=== PATIENT | male | born 1980 | race Caucasian/White ===

== ENCOUNTER → 2016-08-09 09:12 | Day surgery (SDC) | payer BC ==
--- NOTE | 2016-07-20 02:20 | HP ---
HISTORY AND PHYSICAL: DATE OF PLANNED ADMISSION AND SURGERY: 07/26/16 HISTORY OF PRESENT ILLNESS: Mr. Kay is a 35-year-old white male who is admitted with a 4-mm calculus in the distal left ureter for cystoscopy, left ureteroscopy, laser lithotripsy, and left ureteral stent placement. Mr. Kay presented 2-1/2 months ago with pelvic and perineal pain. At that time, his workup showed a 1-cm calculus in the distal left ureter associated with moderate hydronephrosis. He underwent a cystoscopy, which showed a significant degree of edema and hyperemia of the bladder neck and of the trigone. There was a concern this represented a bladder tumor and he had multiple biopsies of the bladder lesions, which turned out to be inflammatory. At the same time, he underwent a left ureteroscopy, laser lithotripsy, and placement of left ureteral stent. He did very well with resolution of his symptoms. On his followup renal ultrasound about 5 weeks prior to this admission, there was a 4-mm calculus fragment noted in the distal left ureter. This was asymptomatic and was not associated with hydronephrosis. It was decided to manage it conservatively. He was evaluated one month later with a renal ultrasound and the stone was still in the same position. The patient however started having recurrence of the pelvic and perineal discomfort. Because of the above history and the duration the stone has been in the same position, the patient is admitted for the above procedure. PAST MEDICAL HISTORY AND SYSTEM REVIEW: Otherwise negative. He is in very good health. He is on no chronic medications. He developed a bad rash while he was on Cipro and Flagyl. He has no other allergies known. PHYSICAL EXAMINATION GENERAL: A pleasant, healthy, and fit-looking young man. VITAL SIGNS: Blood pressure 100/60. LUNGS: Clear. HEART: Regular and rhythmic. No murmurs. ABDOMEN: Soft. No masses, no tenderness, and no CVA tenderness. IMPRESSION: Residual 4 to 5-mm calculus in the distal left ureter present for the last 2 months, becoming moderately symptomatic. PLAN: Plan is for cystoscopy, left ureteroscopy, laser lithotripsy, and left ureteral stent insertion. I discussed the above plans with the patient. All his questions were answered. [id number]/[facility] #: [id number] [facility]ITALAntwon
[~2016-08-09 09:12] MED LIST: Buffered Lidocaine 1% SYRIN* 3 ML/SYR SYRINGE INTRADERM ONE; DiMENhydriNATE IV* 50 MG/ML VIAL IV PUSH PRN; Fluorescein 10% INJ* 100 MG/ML AMP ONE; Iohexol 180 (CONTRAST) 10 ML SDV IV ONE; Lidocaine 2% PF* 5 ML VIAL ONE; Propofol* 10 MG/ML 20 ML BTL IV PUSH ONE; cefTRIAXone(*) 2 GM ADDV.VIAL IVPB ONE; fentaNYL* 50 MCG/ML 2 ML VIAL (100 MCG VIAL) IV PRN; fentaNYL* 50 MCG/ML 2 ML VIAL (100 MCG VIAL) ONE; oxyCODONE/Acetamin 5/325 MG* TAB PO PRN
[2016-08-09 12:10] VITALS: BP 120/79
--- NOTE | 2016-08-09 12:11 | RAD ---
INDICATION: Cystoscopy, LEFT retrograde pyelogram, LEFT ureteroscopy, LEFT ureteral stent placement. History of urolithiasis. COMPARISON: May 08, 2016 CT. TECHNIQUE: 11 seconds fluoroscopy. FINDINGS: LEFT retrograde pyelogram documents moderate caliectasis. LEFT ureteral stent placed. IMPRESSION: Procedural fluoroscopy. CPT II Codes: 6045F
--- NOTE | 2016-08-09 16:37 | OP ---
DATE OF OPERATION: 08/09/16 [facility] DATE OF : 80 SURGEON: Dr. Aponte. ANESTHESIOLOGIST: Dr. Ramiro Bautista. ANESTHESIA: General. PRE-OP DIAGNOSIS: Distal left ureteral calculus. POST-OP DIAGNOSES: 1. Distal left ureteral calculus (5 mm). 2. Edema of bladder neck and trigone. OPERATIVE PROCEDURE: 1. Cystoscopy. 2. Left ureteroscopy and basketing of distal left ureteral calculus. 3. Left retrograde pyelography and placement of left ureteral stent (6 Omani). INDICATIONS: Mr. Kay is a 35-year-old male who presented about 3 months ago with perineal and bladder symptoms with on and off episodes of left flank pain and a 1 cm distal left ureteral calculus noted on MRI. At the time of his cystoscopy, there was severe degree of edema and hyperemia involving the posterior bladder neck and trigone and the proximal prostatic urethra. He underwent transurethral resection of the lesions of the trigone, left ureteroscopy and laser lithotripsy of the left ureteral calculus and placement of bilateral ureteral stents. The pathology on the resected tissue was inflammatory. CT of the abdomen and pelvis showed no pelvic pathology to explain the edema of the bladder neck. The patient did very well postoperatively with resolution of his symptoms. He presented for reevaluation and had a renal and full bladder ultrasound, which showed mild left hydronephrosis and a 5 mm calculus in the distal left ureter. He started having recurrence of his perineal discomfort. He was managed conservatively but the stone did not pass. He is being brought in for the above procedure. PATHOLOGY: At cystoscopy, the penile and bulbar urethrae looked normal. There were no strictures. The prostatic urethra was short and open. There was still a fair amount of edema in the proximal prostatic urethra and the bladder neck. There was also significant degree of bulbous edema involving mostly the posterior bladder neck, the left trigone, and surrounding the left ureteral orifice. The rest of the bladder wall looked normal. The appearance of the changes seen in the bladder neck and trigone were identical to the lesions that were noted and resected on his last cystoscopy. Upon left ureteroscopy, there was a 5 mm calculus that was impacted in the distal ureteral wall with surrounding edema. The calculus looked like a fragment of the stone that was treated previously. Ureteroscopy into the proximal ureter showed no other calculi. Upon left retrograde pyelography, there was moderate degree of left hydronephrosis with tortuosity of the proximal left ureter and moderate hydronephrosis. DESCRIPTION OF PROCEDURE: After successful general anesthesia, the patient was placed in the lithotomy position and was prepped and draped in the usual manner. Cystoscopy was performed. The findings in the prostatic urethra and the bladder neck were noted. The left ureteral orifice could not be identified initially due to the overlying edema. Using a flexible tip guidewire and judging from the anatomical position of the orifice, the orifice was successfully intubated with the guidewire. The cystoscope was removed keeping the guidewire in place. A size 6.5 semirigid ureteroscope was then introduced inside the bladder. A flexible tip basket was introduced through the port of the ureteroscope and its flexible tip was passed inside the left ureteral orifice and was used as a guide to introduce the ureteroscope in an atraumatic way inside the left ureter. The calculus was identified. Using the basket, the stone was disengaged and extracted intact and sent for stone analysis. The ureteroscope was then reintroduced into the left ureter and inspection of the ureter was carried all the way into the proximal end and no other calculi were seen. The ureteroscope was removed. The cystoscope was the reintroduced over the guidewire. Retrograde pyelography was performed. A size 6 Omani stent was then placed with the proximal end coiling in the renal pelvis and the distal end coiling inside the bladder. There was good drainage of contrast from the kidney. The bladder was then emptied and the scope was removed. The patient tolerated the procedure well and left the operating room in good condition. The plan is to leave the stent in place for about 2 weeks and it will be removed in the office under local anesthesia. CC: Dr. Aly Salvador* [id number]/[facility] #: [id number] ANTONIA
== END | disposition home or self-care (01) ==
LOC: OR 09:12
PROVIDERS: ATTEND Urology
DX: N20.1 Calculus of ureter (principal)
CPT/HCPCS: 74420; 82365; 88300; A9270-GY; C1876; J0696; J2704; J3010

== ENCOUNTER 2017-02-28 09:42 | Day surgery (SDC) | payer BC ==
--- NOTE | 2017-02-19 08:16 | HP ---
HISTORY AND PHYSICAL: DATE OF PLANNED ADMISSION AND SURGERY: 02/28/17 HISTORY OF PRESENT ILLNESS: Mr. Kay is a 36-year-old white male who is admitted with left ureteral obstruction, polypoid lesions in bladder base and prostatic urethra, diffuse bladder wall edema, for cystoscopy, left ureteroscopy , and balloon dilation of ureter, and transurethral resection of bladder lesions. Mr. Kay's history goes back to about 1 year ago when he started having perineal and perirectal pain. This was not associated with any voiding symptoms. At that time, he was evaluated by Dr. Watson from General Surgery. His evaluation did not reveal any rectal or perirectal pathology. In April 2016, he had an MRI of the pelvis. There was no perirectal or pelvic pathology noted except for an 8-mm calculus that was noted in the distal left ureter. On 05/05/16, the patient was taken to the operating room for treatment of the calculus. At cystoscopy, there were polypoid lesions noted in the proximal prostatic urethra, the bladder neck, and the trigone. They were partially obstructing his bladder outlet. The lesions did not have the typical characteristics of a bladder tumor. They looked inflammatory or reactive. The patient underwent a left ureteroscopy and a laser lithotripsy and extraction of the left ureteral calculus, with stents placement. He also underwent a transurethral resection of the lesions noted in the trigone. The bladder neck and the prostatic urethral lesions were not resected because of concern of causing the patient to develop permanent retrograde ejaculation. The pathology on the resected tissue showed inflammation only. There was no evidence malignancy. He was placed post op on Flagyl and Cipro, assuming he might have perirectal inflammation Because of a concern about a diverticular or perirectal abscess or pathology in the space between the rectum, the posterior bladder neck and the prostate, causing the inflammatory changes noted, the patient had a CT of the abdomen and pelvis. There were no abnormalities noted, only some thickening of the bladder wall. The patient had removal of his stents about 2 weeks later. He had recurrence of the left lower quadrant and the pelvic pain. At that time , ultrasound showed a small stone fragment in the distal left ureter. He was taken to the operating room on 08/09/16 and underwent a left ureteroscopy and basketing of the distal left ureteral calculus and placement of a left ureteral stent. At cystoscopy, there were again noted the same polypoid lesions noted in the proximal prostatic urethra, the bladder neck, and the area of the trigone. They were identical to the lesions that were resected in April and it was decided not to resect them again. A 4-mm calculus was extracted from the distal left ureter and he had the stent placed. Because of the unclear diagnosis causing those lesions, and to rule out rectal or colonic lesions causing the pathology noted on cystoscopy, he had a colonoscopy in October 2016. No abnormalities or pathology noted. The patient also had several rectal exams, which showed no prostate abnormalities. His PSA was very low at 0.35. Urine cytologies were negative. Because of recurrence of the perineal and pelvic discomfort, he had a repeat CT urogram. The study showed a dilated distal left ureter with tapering of at the left ureterovesical junction. The appearance was identical to what was noted on his original CT scan. The obstruction seems to be secondary to thickening of the bladder wall at the ureterovesical junction. There was also some thickening of the bladder wall and some prostate enlargement. No other abnormalities or pelvis abnormalities were noted. His urinalysis was positive for microscopic hematuria, was negative otherwise. The patient has been complaining of decreased urinary stream, and continued to have the pelvic discomfort. He was also having mild Left flank pain. No gross hematuria. He has not been having any changes in his bowel movements. Urine culture was negative. Uroflowmetry showed a peak flow of 8 ml/sec, voided volume 53 cc. Post void bladder ultrasound 36 cc. Because of the above history and findings on the CT scan, the patient is admitted for the above procedures. PAST MEDICAL HISTORY AND SYSTEM REVIEW: Otherwise completely negative. He is in excellent health. MEDICATIONS: He is on no chronic medications. ALLERGIES: He reported having had a rash while he was on CIPRO or FLAGYL when those were given to him after his initial ureteroscopy when he was being treated for suspected diverticulosis, but he does not have any systemic allergies to medications. 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 He is , has 2 children and has completed his family. PHYSICAL EXAMINATION GENERAL: Pleasant, healthy, and fit-looking young man. VITAL SIGNS: Blood pressure 120/80, pulse of 90. ABDOMEN: Exam of the abdomen is normal. He has no CVA tenderness. Abdominal exam is normal. External genitalia are normal. He has no inguinal hernias. RECTAL: Shows a benign feeling and a nonenlarged and smooth and nontender and nonindurated prostate. EXTREMITIES: Show no edema. IMPRESSION: 1. Distal left ureteral obstruction that seems to be secondary to thickening of the bladder wall. 2. History of multiple polypoid lesions involving the trigone, the bladder neck , and the proximal prostatic urethra, which on previous biopsies were inflammatory and benign. 3. Element of bladder outlet obstruction due to above. PLAN: Cystoscopy, left ureteroscopy, balloon dilation of distal left ureter, and placement of left ureteral stent. The polypoid lesions in the trigone will be again resected. I will try to biopsy or resect the lesions noted in the bladder neck and in the prostatic urethra. The concern, however, is that this might lead to permanent retrograde ejaculation. I discussed the above with the patient. I discussed also the potential that he might end up with permanent retrograde ejaculation. He feels that he has completed his family and if this will be needed to treat his condition or to have a correct diagnosis about his condition, then he would accept that potential complication. All his questions were answered. [id number]/[facility] #: [id number] ANTONIA
[~2017-02-28 09:42] MED LIST changes: +Buffered Lidocaine 0.9% SYRIN* 5 ML/SYR SYRINGE INTRADERM ONE; -Buffered Lidocaine 1% SYRIN* 3 ML/SYR SYRINGE INTRADERM ONE; -DiMENhydriNATE IV* 50 MG/ML VIAL IV PUSH PRN; -Fluorescein 10% INJ* 100 MG/ML AMP ONE; -Iohexol 180 (CONTRAST) 10 ML SDV IV ONE; -Lidocaine 2% PF* 5 ML VIAL ONE; -Propofol* 10 MG/ML 20 ML BTL IV PUSH ONE; +Sodium Citrate/Citric Acid* 15 ML UDC PO ONE; -cefTRIAXone(*) 2 GM ADDV.VIAL IVPB ONE; -fentaNYL* 50 MCG/ML 2 ML VIAL (100 MCG VIAL) IV PRN; -fentaNYL* 50 MCG/ML 2 ML VIAL (100 MCG VIAL) ONE; -oxyCODONE/Acetamin 5/325 MG* TAB PO PRN
[2017-02-28] MEDS ORDERED: cefTRIAXone(*) 2 GM ADDV.VIAL IVPB ONE (09:46)
[2017-02-28] MEDS ORDERED: Buffered Lidocaine 0.9% SYRIN* 5 ML/SYR SYRINGE ONE (09:46)
[2017-02-28] MEDS ORDERED: Sodium Citrate/Citric Acid* 15 ML UDC ONE (09:46)
[2017-02-28] MEDS ORDERED: fentaNYL* 50 MCG/ML 2 ML VIAL (100 MCG VIAL) ONE (10:29)
[2017-02-28] MEDS ORDERED: Midazolam* 1 MG/ML 2 ML VIAL (2 MG) ONE (10:29)
[2017-02-28] MEDS ORDERED: Propofol* 10 MG/ML 20 ML BTL IV PUSH ONE (10:30)
[2017-02-28] MEDS ORDERED: Lidocaine 2% PF * 5 ML VIAL ONE (10:30)
[2017-02-28] MEDS ORDERED: Dexamethasone IV* 4 MG/ML 1 ML (4 MG) ONE (10:57)
[2017-02-28] MEDS ORDERED: Ondansetron INJ* 2 MG/ML VIAL IV PRN (11:05)
[2017-02-28] MEDS ORDERED: fentaNYL* 50 MCG/ML 2 ML VIAL (100 MCG VIAL) IV PRN (11:05)
[2017-02-28] MEDS ORDERED: Ketorolac INJ* 30 MG/ML 1 ML VIAL IV PRN (11:05)
[2017-02-28] MEDS ORDERED: Fluorescein 10% INJ* 100 MG/ML AMP ONE (11:06)
[2017-02-28 13:05] VITALS: BP 127/78
--- NOTE | 2017-02-28 13:57 | RAD ---
CPT II Codes: 6045F INDICATION: Left ureteroscopy with balloon dilatation. [place] 31 seconds of fluoroscopy time was used. There is right hydroureter noted. Balloon dilatation of both ureteral stents with placement of ureteral stents bilaterally was performed. IMPRESSION: Placement of bilateral ureteral stents.
--- NOTE | 2017-03-01 15:11 | OP ---
CC: Dr. Aly Salvador OPERATIVE REPORT: DATE OF OPERATION: 02/28/17 DATE OF : 80 SURGEON: Colt Aponte MD ANESTHESIOLOGIST: Dr. Crow Salazar ANESTHESIA: General. PRE-OP DIAGNOSES: 1. Left hydroureteronephrosis. 2. Lesions of trigone and base of bladder. 3. Bladder outlet obstruction. POST-OP DIAGNOSES: 1. Left hydroureteronephrosis. 2. Lesions of trigone and base of bladder. 3. Bladder outlet obstruction. OPERATIVE PROCEDURE: 1. Cystoscopy, transurethral resection of lesions of trigone and base of bladder. 2. Right retrograde pyelography and placement of right ureteral stent (6- Swedish). 3. Left retrograde pyelography, left ureteroscopy, balloon dilation of distal left ureter. 4. Placement of left ureteral stent (7-Swedish). INDICATION FOR PROCEDURE: Mr. Kay is a 36-year-old white male who had 1- year history of pelvic pain and was noted in April to have left hydroureteronephrosis and a calculus in the distal left ureter. In April 2016, he underwent a cystoscopy, which showed multiple papilloid lesions in the base of the bladder and in the trigone. The lesions were resected, a left ureteroscopy, laser lithotripsy, and placement of bilateral ureteral stents. The pathology on the resected tissue was benign showing inflammation only. The patient was extensively worked up with a pelvic MRI, CT of the abdomen and pelvis, colonoscopy, and no other abnormalities were noted, in particular he did not have any GI pathology, no perirectal abscess, or diverticulosis, or any inflammatory changes in the pelvis. Recently, the patient had recurrence of his symptoms with pelvic pain and decreased stream and some left flank pain. CT urogram showed dilated left ureter tapering down at the ureterovesical junction. There was some thickening of the bladder wall. Because of the above findings, the patient was admitted for the above procedure. PATHOLOGY: At cystoscopy, the penile and bulbar urethrae looked normal. The prostatic urethra was short. There was a mucosal-like flap at the level of the bladder neck and the proximal prostatic urethra, but no papillary lesions or suspicious lesions noted in the prostatic urethra. Examination of the bladder showed papillloid lesions, and edematous elevated lesions occupying the trigone and the base of the bladder. The lesions looked inflammatory rather than malignant. They were obscuring the ureteral orifices. The bladder showed moderate diffuse trabeculations. There were a few cellules and small diverticulae noted. The base of the bladder showed some thickening and changes consistent with chronic inflammation. No other suspicious bladder lesion seen. Right retrograde pyelography showed no hydronephrosis or hydroureter. Left retrograde pyelography showed a moderate left hydroureter and hydronephrosis. The left ureter was obstructed at the ureterovesical junction level, and the obstruction seemed to be extrinsic from thickening of the bladder wall. Left ureteroscopy showed edema of the ureteral mucosa, but no intraureteral lesions or calculi were seen. The distal ureter yielded very easily to balloon dilation without any waisting. The resected lesions in the trigone and the base of the bladder seemed reactive and inflammatory and were slightly vascular. DESCRIPTION OF PROCEDURE: After successful general anesthesia, the patient was placed in the lithotomy position and was prepped and draped for a cystoscopy. Cystoscopy was performed. The findings in the prostatic urethra, the bladder neck and the bladder were noted. The ureteral orifices could not be identified due to overlying lesions. The patient was then given 0.5 cc of fluorescein. This did not help identify the ureteral orifices. The cystoscope was then removed and resectoscope was passed inside the bladder. The lesions noted in the trigone and the base of the bladder were then resected. The bleeders were electrocoagulated. Care was taken not to resect the bladder neck or the prostatic urethra to avoid causing retrograde ejaculation. The resectoscope was removed and the cystoscope was introduced inside the bladder. The right orifice was identified. It was intubated and retrograde pyelography was performed showing no dilatation and no pathology. Because the right orifice was resected, decision was made to place a ureteral stent. A 6-Swedish stent was placed with the proximal end coiling in renal pelvis and the distal end coiling inside the bladder. The attention was then directed to the left orifice. It was identified and then intubated with a guidewire. Retrograde pyelography was then performed demonstrating the above pathology, namely the dilated ureter and tapering down at the ureterovesical junction consistent with extrinsic obstruction. The distal ureter was then dilated with an 8-Swedish open-ended catheter. The 6.5 semi-rigid ureteroscope was then introduced inside the bladder. A flexible- tip guidewire was introduced through the port of the ureteroscope and was used to intubate the left ureter adjacent to the safety guidewire. That allowed the introduction of the ureteroscope with no significant trauma. The distal ureter was then carefully inspected and no intraluminal pathology was noted. The ureteroscope was then removed keeping the safety guidewire in place. The cystoscope was then introduced over the guidewire. Balloon dilator was then passed over the guidewire and positioned in the distal ureter. The distal ureter was easily dilated with the balloon dilator and no waisting was noted. The balloon dilator was then deflated and removed keeping the guidewire in place. A size 7-Swedish stent was then placed in the left ureter with the proximal end coiling in renal pelvis and the distal end coiling inside the bladder. Additional resection and fulguration of the lesions in the trigone and the base of the bladder was then performed. The resected specimen was sent for pathology. A size 18-Swedish Hahn catheter was then passed inside the bladder and the balloon inflated with 10 cc of water. The patient tolerated the procedures well and left the operating room in good condition. The blood loss was negligible. The specimen was lesions of trigone and base of bladder. [id number]/[facility] #: [id number] [facility]OSPITALAntwon
== END 2017-02-28 14:12 | disposition home or self-care (01) ==
LOC: OR 09:42
PROVIDERS: ATTEND Urology
DX: N13.39 Other hydronephrosis (principal); N32.0 Bladder-neck obstruction; N13.1 Hydronephrosis with ureteral stricture, not elsewhere classified; N30.80 Other cystitis without hematuria; N32.89 Other specified disorders of bladder
CPT/HCPCS: 74420; 88305; A9270-GY; C1876; J0696; J1100; J2250; J2704; J3010